=== PATIENT | male | born 1995 | race Caucasian/White ===

== ENCOUNTER 2017-04-05 18:04 | Emergency (ER) | payer OTHER ==
[~2017-04-05 18:04] MED LIST: COGENTIN1 M1 PO; HALDOL PO; LEVAQUIN PO
[2017-04-05 20:49] LABS: BASOPHIL% 0.2 % (0-2.5); EOSINOPHIL# 0.2 X10e3 (0-0.7); HEMATOCRIT 40.7 % (38.0-50.0); HEMOGLOBIN 13.7 gm/dL (13.0-16.0); LYMPHOCYTE# 2.2 X10e3 (1.0-3.5); LYMPHOCYTE% 19.9 % (17.0-45.0); MEAN CELL VOLUME 88.8 FL (83-96); MEAN CORPUSCULAR HEMOGLOBIN 29.9 PG (28-34); MEAN CORPUSCULAR HGB CONC 33.7 g/dL (30-36); MONOCYTE% 9.3 % (3.0-12.0); NEUTROPHIL# 7.4 X10e3 (1.5-7.1); NEUTROPHIL% 68.6 % (40-75); PLATELET COUNT 235 X10e3 (140-420); RED BLOOD COUNT 4.59 X10e (3.90-5.60); RED CELL DISTRIBUTION WIDTH 13.6 % (11.0-15.5); WHITE BLOOD COUNT 10.9 X10e3 (4.0-10.5)
[2017-04-05 20:50] LABS: DIFF IND NO
[2017-04-05 21:08] LABS: BUN/CREATININE RATIO 17.14; CALCIUM SERUM 9.3 mg/dL (8.4-10.2); CREATININE SERUM 0.7 mg/dL (0.6-1.4); POTASSIUM 4.1 mmol/L (3.5-5.1)
== END 2017-04-05 21:20 | disposition home or self-care (01) ==
LOC: CFTX 18:04 → EDBD 18:04 → CED 18:04 → EDBD 19:53 → CFTX 19:53
PROVIDERS: Nurse Practitioner
DX: L03.115 Cellulitis of right lower limb (principal); F17.210 Nicotine dependence, cigarettes, uncomplicated
CPT/HCPCS: 36415; 80048; 85025; 99283

== ENCOUNTER 2017-05-25 23:52 | Emergency (ER) | payer OTHER ==
[~2017-05-25] VITALS: Ht 172.7 cm; Wt 56.7 kg
== END 2017-05-26 03:25 | disposition left against medical advice (07) ==
LOC: CED 23:52 → EDBD 23:59 → CED 23:59
DX: Z53.21 Procedure and treatment not carried out due to patient leaving prior to being seen by health care provider (principal)